=== PATIENT | male | born 1965 | race Caucasian/White ===

== ENCOUNTER 2020-12-21 10:47 | Emergency (ER) | payer BC ==
[~2020-12-21] VITALS: Ht 175.3 cm; Wt 86.2 kg
--- NOTE | 2020-12-21 11:00 | NUR ---
patient came in to the er c/o LLE, calf pain and swelling, worsening since monday. denies chest pain, sob. On room air, breathing evenly and unlabored. Kept comfortable, will continue to monitor accordingly.
[2020-12-21] MEDS ORDERED: APIX5TAB PO (12:20)
[2020-12-21 12:33] VITALS: BP 135/81
--- NOTE | 2020-12-21 12:34 | NUR ---
Patient discharged to home in stable condition. Written and verbal after care instructions given. Patient verbalizes understanding of instruction.
== END 2020-12-21 12:34 | disposition home or self-care (01) ==
LOC: ER 10:53
DX: I82.492 Acute embolism and thrombosis of other specified deep vein of left lower extremity (principal); Z79.899 Other long term (current) drug therapy
CPT/HCPCS: 93971-TC